=== PATIENT | male | born 1980 | race Caucasian/White ===

== ENCOUNTER 2023-09-01 06:07 | Day surgery (SDC) | payer OTHER, SELFPAY ==
[2023-09-01] VITALS (10 sets, daily range): BP systolic 108–132; BP diastolic 56–68
[2023-09-01] MEDS: NORMOSOL-R 1000 IV (06:39)
[2023-09-01] MEDS: TYLENOL 1000 MG PO (06:39)
[2023-09-01] MEDS: CELEBREX 200 MG PO (06:40)
[2023-09-01] MEDS: SUBLIMAZE 25 MCG IV (08:51)
== END 2023-09-01 10:20 | disposition home or self-care (01) ==
LOC: SDS 06:07
PROVIDERS: ATTENDING PHYSICIAN Specialist
DX: S46.011A Strain of muscle(s) and tendon(s) of the rotator cuff of right shoulder, initial encounter (principal); X58.XXXA Exposure to other specified factors, initial encounter; E66.01 Morbid (severe) obesity due to excess calories; Z68.42 Body mass index [BMI] 45.0-49.9, adult; Z98.890 Other specified postprocedural states
CPT/HCPCS: 29823

== ENCOUNTER 2024-01-22 01:42 | Emergency (ER) | payer SELFPAY ==
[2024-01-22 01:45] VITALS: BP 194/104
--- NOTE | 2024-01-22 02:25 | ED.GENMED ---
History of Present Illness
General
Chief Complaint: Dental Problem
Source: patient
Exam Limitations: none
Time Seen by Provider: 01/22/24 02:14
History of Present Illness
History of Present Illness:
See MDM
Past History
Past History
ED Past Medical History: CHF and HTN
ED Past Surgical History: None
Patient has exhibited threatening behavior?: No
PSI?: No
Social History
Tobacco: Former smoker
Alcohol: Occasional
Drug: None
Personal:
Living: with family
Employment: Employed
Family History
Family History: Hypertension
Phy Exam
Physical Exam
Physical Exam:
See MDM
Course
Orders/Labs/Results
Orders:
Orders
01/22/24 02:25
Amoxicillin 875 mg/Clav 125 mg [Augmentin 875 mg/125 mg] 1 tablet PO NOW STA
Ketorolac [Toradol] 30 mg IM NOW STA
Oxycodone/Acetaminophen [Percocet 5/325] 1 tablet PO NOW STA
Vital Signs
Initial and Last Documented VS:
Initial Vital Signs
Temp Pulse Resp BP Pulse Ox
98.1 F 63 16 194/104 99
01/22/24 01:45 01/22/24 01:45 01/22/24 01:45 01/22/24 01:45 01/22/24 01:45
Last Documented Vital Signs
Temp Pulse Resp BP Pulse Ox
98.1 F 63 16 194/104 99
01/22/24 01:45 01/22/24 01:45 01/22/24 01:45 01/22/24 01:45 01/22/24 01:45
MDM/Problems Addressed
Differential Diagnosis Includes:
HPI and MDM Narrative:
43-year-old male presenting for evaluation of right lower dental pain. He noted swelling over the past few days. Patient does acknowledge that he has poor dentition due to prior history of drug abuse. He no longer does drugs but he has not
followed up with a dentist. On exam, he has poor dentition and dental caries with multiple fractured teeth. He has got swelling to his left lower jaw with no palpable abscess. We discussed the likelihood of an apical abscess and the importance of
dental follow-up. He is nontoxic-appearing. Will start Augmentin. Patient is hesitant to start NSAIDs due to his history of high blood pressure.
Physical exam
General: Mildly uncomfortable
HEENT: protecting airway. Poor dentition. Swelling to the right lower jaw
Neck: appears supple
CV: No evidence of cyanosis
Resp: No accessory muscle use
Abd: Non-distended
Extremities: No deformities
Neuro: alert
Psych: Normal affect
Skin: Intact
Problems Addressed including Acute and Chronic Conditions affecting care:
1. Dental infection
Acuity: acute
Prognosis: stable
Details: We discussed the likelihood of apical abscess. Will start Augmentin and discussed the importance of dental follow-up
Differential Diagnosis (but not limited to): Dental caries, dental
Testing considered:
Drug therapy (if applicable): OTC meds, please see d/c instruction regarding Rx drugs
Amount and/or Complexity of Data Reviewed
Clinical info obtained from: Patient
External data reviewed: N/A
Labs I independently reviewed (but not limited to): N/A
Radiology: N/A
Pulse Ox: not hypoxic
EKG independently reviewed: N/A
Trimming Machine Operator: N/A
Critical Care: N/A
Risk of Complication:
Social Determinants of health: Good social support
Discussed with other providers: N/A
Escalation of Care includes Admit/Obs: After being observed in the Emergency Department, pt stable for discharge.
Occasional wrong word or 'sound a like' substitutions may have occurred due to the inherent limitations of voice recognition software. Read the chart carefully and recognize, using context, where substitutions have occurred.
*Critical Care Note
Total Time (30-74mins, 75-104mins- exclusive of procedures): Not Applicable
ED Attending Note
-
Portions of this chart may have been created with voice recognition software.� Occasional wrong word or��sound alike� substitutions may have occurred due to the inherent limitations of voice recognition software.
Discharge Plan
Departure
Patient Disposition: Home (Routine Discharge)
Date of Disposition: 01/22/24
Time of Disposition: 02:28
Patient with high blood pressure during this ER visit?: Yes
Discharge Problem:
Abscess, dental
Instructions: Tooth Abscess (DC), BLOOD PRESSURE
Prescriptions:
New
amoxicillin-pot clavulanate 875-125 mg tablet
1 tab PO BID Qty: 20 0RF
oxycodone 5 mg tablet
5 mg PO Q8H PRN (Reason: Pain) Qty: 14 0RF
No Action
carvedilol 12.5 mg tablet
12.5 mg PO BID
spironolactone 25 mg Tablet
25 mg PO DAILY Qty: 30 11RF
Entresto 49-51 mg Tablet
1 tab PO BID Qty: 60 11RF
furosemide [Lasix] 40 mg tablet
80 mg PO DAILY
Activity Restrictions/Additional Instructions:
Please return for any worsening symptoms.
You may return at any time if you have further concerns.
Please follow up with your doctor at the first available appointment, preferably this week.
You need to see the dentist at the first available appointment.
You were given a prescription for narcotics. If you require this pain medicine, please take a daily [id number] stool softener to avoid constipation.
Thank you for choosing [facility].
Interventions
Interventions:
*Risk Screen - Suicide Last Done: 01/22/24 01:45
*General Assessment Last Done: 01/22/24 01:45
*Neglect/Abuse Screening Last Done: 01/22/24 01:45
*ED COVID-19 Vaccine History Last Done: 01/22/24 02:10
Discharge Date and Time
Print Language: HEBREW
[2024-01-22] MEDS: AUGMENTIN 875 MG/125 MG 1 TABLET PO (02:29)
[2024-01-22] MEDS: TORADOL 30 MG IM (02:30)
[2024-01-22] MEDS: PERCOCET 5/325 1 TABLET PO (02:30)
[2024-01-22 02:35] VITALS: BP 131/74
== END 2024-01-22 02:45 | disposition home or self-care (01) ==
LOC: EMR 01:42
PROVIDERS: EMERGENCY PHYSICIAN Student in an Organized Health Care Education/Training Program
DX: K04.7 Periapical abscess without sinus (principal); I11.0 Hypertensive heart disease with heart failure; I50.9 Heart failure, unspecified; Z87.891 Personal history of nicotine dependence
CPT/HCPCS: 99284; 96372

== ENCOUNTER 2025-05-02 05:55 | Emergency (ER) | payer SELFPAY ==
[2025-05-02 06:20] VITALS: BP 135/79
[2025-05-02] MEDS: ANCEF 5 IV (07:48)
[2025-05-02 08:03] LABS: Hematocrit 39.9 % (39.0-52.0); Hemoglobin 13.1 g/dL (13.0-18.0); Mean Corp Hgb Conc. 32.8 g/dL (33.0-37.0); Mean Corpuscular Volume 86.0 fL (80.0-94.0); Nucleated Red Blood Cells % 0 % (-); Platelet Count 230 10^3/uL (130-400); Red Cell Dist. Width 13.7 % (11.5-14.5)
[2025-05-02 08:10] VITALS: BMI 46.5
[2025-05-02 08:19] LABS: ALT (SGPT) 27 U/L (0-50); AST (SGOT) 23 U/L (17-59); Albumin 4.3 g/dl (3.5-5.0); Alkaline Phosphatase 65 U/L (38-126); Blood Urea Nitrogen 28 mg/dl (9-20); Calcium 9.0 mg/dl (8.4-10.2); Carbon Dioxide 30 mmol/L (22-30); Chloride 99 mmol/L (98-107); Estimated Creatinine Clearance > 125 ml/min; Glucose 100 mg/dl (70-99); Potassium 4.4 mmol/L (3.5-5.1); Sodium 135 mmol/L (135-145); Total Protein 7.2 g/dl (6.3-8.2); eGFR > 60.00
--- NOTE | 2025-05-02 08:21 | ED.GENMED ---
History of Present Illness
<Mckenzie Marquez PA-C - Last Filed: 05/02/25 10:17>
General
Chief Complaint: Skin Problem
Source: patient
Exam Limitations: none
Time Seen by Provider: 05/02/25 07:06
Nursing documentation reviewed up to this point in time: agreed with
History of Present Illness
History of Present Illness:
see MDM
Past History
<VANNESA Randall Last Filed: 05/02/25 10:17>
Past History
ED Past Medical History: CHF and HTN
ED Past Surgical History: None
Patient has exhibited threatening behavior?: No
PSI?: No
Social History
Tobacco: Former smoker
Alcohol: Occasional
Drug: None
Personal:
Living: with family
Employment: Employed
Family History
Family History: Hypertension
Review of Systems
<VANNESA Randall Last Filed: 05/02/25 10:17>
Review of Systems
Allergies reviewed?: Yes
All Other Systems: Not applicable
Phy Exam
<Mckenzie Marquez PA-C - Last Filed: 05/02/25 10:17>
Physical Exam
Physical Exam:
GENERAL: Alert , in no apparent distress, comfortable at rest
HEAD: NCAT
CV: 2+ DP PULSES B/L
NEUROLOGICAL: Alert and oriented, no focal neuro deficits, , 5/5 strength, sensation intact, ambulation slight limp right leg
SKIN: Warm and dry, patient has a healing hematoma without obvious laceration or skin abrasion to the anterior proximal lower leg on the left but he has a large surrounding cellulitis that is mostly anterior and starting to wrap around the posterior
aspect of the calf. There is no crepitus, significant tenderness, mild tenderness is present though. Patient does have some mild pitting edema, his foot is normal perfusion, normal pulse, nontender, he is able to dorsi and plantarflex the foot
MUSCULOSKELETAL: healing Hematoma plus swelling to the anterior left lower extremity, full range of motion of the knee and the ankle
moderate swelling, and redness
PSYCH: Normal and appropriate interaction.
Sepsis
<Mckenzie Marquez PA-C - Last Filed: 05/02/25 10:17>
Sepsis Screening
Sepsis Assessment: Sepsis Ruled Out
Sepsis Screen
Sepsis Screen: Sepsis Ruled Out
Date: 05/02/25
Time: 10:17
Course
<Mckenzie Marquez PA-C - Last Filed: 05/02/25 10:17>
Orders/Labs/Results
Orders:
Orders
05/02/25 07:21
Tib/Fib, Left 2 View [CR Leg Tibia/fibula Left 2 Vw] Urgent
Comment:
Reason For Exam: hematoma to L day, now cellulitis
05/02/25 07:26
CeFAZolin 1 GRAM [Ancef] 1 gram in 5 ml IV NOW
05/02/25 07:47
Complete Blood Count/With Diff Urgent
Comprehensive Metabolic Panel Urgent
Abnormal Lab Results
05/02/25
07:47
RBC 4.64 L 10^6/uL
(4.70-6.10)
MCHC 32.8 L g/dL
(33.0-37.0)
MPV 11.1 H fL
(7.4-10.4)
Abs Immat Gran (auto) 0.1 H 10^3/uL
(0-0.05)
Absolute Monos (auto) 1.0 H 10^3/uL
(0.1-0.6)
Immature Gran % 0.7 H %
(0-0.5)
Monocytes % 12.1 H %
(1.7-9.3)
BUN 28 H mg/dl
(9-20)
Glucose 100 H mg/dl
(70-99)
05/02/25 07:47
05/02/25 07:47
Vital Signs
Initial and Last Documented VS:
Initial Vital Signs
Temp Pulse Resp BP Pulse Ox
37.1 C 80 18 135/79 97
05/02/25 06:20 05/02/25 06:20 05/02/25 06:20 05/02/25 06:20 05/02/25 06:20
Last Documented Vital Signs
Temp Pulse Resp BP Pulse Ox
37.1 C 65 18 111/61 97
05/02/25 06:20 05/02/25 08:41 05/02/25 06:20 05/02/25 08:41 05/02/25 08:41
<Farzaneh Salazar MD - Last Filed: 05/02/25 08:25>
Orders/Labs/Results
Orders:
Orders
05/02/25 07:21
Tib/Fib, Left 2 View [CR Leg Tibia/fibula Left 2 Vw] Urgent
Comment:
Reason For Exam: hematoma to L day, now cellulitis
05/02/25 07:26
CeFAZolin 1 GRAM [Ancef] 1 gram in 5 ml IV NOW
05/02/25 07:47
Complete Blood Count/With Diff Urgent
Comprehensive Metabolic Panel Urgent
Abnormal Lab Results
05/02/25
07:47
RBC 4.64 L 10^6/uL
(4.70-6.10)
MCHC 32.8 L g/dL
(33.0-37.0)
MPV 11.1 H fL
(7.4-10.4)
Abs Immat Gran (auto) 0.1 H 10^3/uL
(0-0.05)
Absolute Monos (auto) 1.0 H 10^3/uL
(0.1-0.6)
Immature Gran % 0.7 H %
(0-0.5)
Monocytes % 12.1 H %
(1.7-9.3)
BUN 28 H mg/dl
(9-20)
Glucose 100 H mg/dl
(70-99)
05/02/25 07:47
05/02/25 07:47
Vital Signs
Initial and Last Documented VS:
Initial Vital Signs
Temp Pulse Resp BP Pulse Ox
37.1 C 80 18 135/79 97
05/02/25 06:20 05/02/25 06:20 05/02/25 06:20 05/02/25 06:20 05/02/25 06:20
Last Documented Vital Signs
Temp Pulse Resp BP Pulse Ox
37.1 C 65 18 111/61 97
05/02/25 06:20 05/02/25 08:41 05/02/25 06:20 05/02/25 08:41 05/02/25 08:41
<Mckenzie Marquez PA-C - Last Filed: 05/02/25 10:17>
MDM/Problems Addressed
Differential Diagnosis Includes:
see MDM
MDM/Problems Addressed:
Note:
CHIEF COMPLAINT(S)
Leg redness and swelling following trauma.
HISTORY OF PRESENT ILLNESS
The patient is a 44-year-old male who presented with concerns of leg redness and swelling. The patient reported falling and hitting his chin on a curb last Monday, resulting in a large contusion and hematoma on the leg. Initially, the area was a
prominent bruise without any open wound or bleeding. By the following Monday or Monday, the patient began to notice increased redness and swelling at the site, which was initially about the size of a tennis ball. The patient described the pain as
progressively worsening over the last two days, with the pain being particularly excruciating during initial steps after rest, especially upon waking at night. No fever or chills have been reported by the patient. There is also a notable white,
chalky appearance on the skin, described as dry and stretched out. The patient denies having diabetes and has had no prior issues with poorly healing wounds or cellulitis in this area.
he has had MRSA cellulitis hand previously
PAST MEDICAL AND SURGICAL HISTORY
The patient mentioned taking several medications for blood pressure, but specific past medical or surgical details were not discussed.
MEDICATIONS
The patient reports taking Spironolactone, Furosemide, Lisinopril, and Carvedilol for blood pressure management.
PLAN
The plan includes drawing a boundary line around the area of redness for monitoring, ordering basic laboratory tests, and administering a dose of intravenous antibiotics before discharge. The patient is to be sent home with a prescription for oral
antibiotics. The patient was advised to return if the redness expands beyond the marked area or if fever develops, as this could necessitate further intravenous antibiotic therapy.
DIFFERENTIAL DIAGNOSIS
The Differential Diagnosis includes, in no particular order and is not limited to:
1. Cellulitis
2. Contusion with superimposed infection
3. Deep vein thrombosis
4. Hematoma-related infection
5. Gout flare
6. Vascular insufficiency
7. Lymphedema
8. Erysipelas
9. Contact dermatitis
10. Venous stasis dermatitis
CARE-UPDATE
05/02/25 - 09:11
Patients blood work results are reassuring, showing normal sugar levels and a normal white blood cell count. Redness on the affected area will be monitored by drawing a boundary line around it. A dose of IV antibiotics targeting staph and strep
infections has been administered, and doxycycline has been prescribed, based on previous effectiveness against similar infections. The patient was advised to monitor the redness over the next 48 hours and return if it extends significantly beyond
the marked boundary, particularly by Monday. The possibility of blood clots is considered low; however, further action and an ultrasound may be necessary if symptoms worsen or capillary bleeding increases.
<Mckenzie Marquez PA-C - Last Filed: 05/02/25 10:17>
*Pulse Oximetry
SaO2: 97
Oxygen Mode of Delivery: Room air
Patient hypoxic: no (97)
*Critical Care Note
Total Time (30-74mins, 75-104mins- exclusive of procedures): Not Applicable
ED Attending Note
<Mckenzie Marquez PA-C - Last Filed: 05/02/25 10:17>
-
Portions of this chart may have been created with voice recognition software.� Occasional wrong word or��sound alike� substitutions may have occurred due to the inherent limitations of voice recognition software.
<Farzaneh Salazar MD - Last Filed: 05/02/25 08:25>
ED Attending Note
Patient seen and examined by attending physician: Yes
I performed the substantive portion of visit, reviewed & personally made and approve the management plan that is documented in note by myself or MAURICE.: Yes
ED Attending Note:
44 yr old male who suffered a fall, strking L tib/fib. Initially, pt noted hematoma, now in last few days, area swollen/painful/red. No f/c/drainage/n/t/focal weakness. No cp/sob. Able to ambulate. On exam, L day area with erythema/warmth extend
faintly to post aspc/calf. Nl pulses/cap refill. FROM. Hematoma (small) noted anteriorly. No fluctuance/crepitus/drainage or other abnl. H x/phy very suggestive of cellulitis secondary to minor trauma. Highly doubt DVT or other abnl. Pt will
closely follow with daily photos and close f/u, aware re:reasons to rted.
Discharge Plan
Departure
Patient Disposition: Home (Routine Discharge)
Date of Disposition: 05/02/25
Time of Disposition: 09:09
Patient with high blood pressure during this ER visit?: No
Condition: Fair
Covid-19: Not Applicable
Discharge Problem:
Cellulitis
Instructions: Cellulitis (Skin Infection), Adult (DC)
Prescriptions:
New
doxycycline hyclate 100 mg tablet
100 mg PO BID Qty: 14 0RF
No Action
carvedilol 12.5 mg tablet
12.5 mg PO BID
spironolactone 25 mg Tablet
25 mg PO DAILY Qty: 30 11RF
Entresto 49-51 mg Tablet
1 tab PO BID Qty: 60 11RF
furosemide [Lasix] 40 mg tablet
80 mg PO DAILY
amoxicillin-pot clavulanate 875-125 mg tablet
1 tab PO BID Qty: 20 0RF
oxycodone 5 mg tablet
5 mg PO Q8H PRN (Reason: Pain) Qty: 14 0RF
Referrals:
Heidi Andersen CRNP [Family Provider, Internal Medicine]
Activity Restrictions/Additional Instructions:
you have a cellulitis which is a skin infection around your hematoma of your lower leg. You need to elevate this to help with pain and swelling, you should watch this very closely, I arlen a line around the redness. You should take the antibiotics
as prescribed but if you are having extension of the redness outside the line within the next 24 to 48 hours you should return. Any fevers or chills or worsening severe pain, foot drop, numbness tingling or weakness you need to return immediately.
It is very low suspicion for a blood clot but if you are having continued redness and swelling in of the calf I would recommend that you have an ultrasound as an outpatient. Your x-ray here showed no signs of fracture.
Interventions
Interventions:
*General Assessment Last Done: 05/02/25 07:48
*Neglect/Abuse Screening Last Done: 05/02/25 09:20
*ED COVID-19 Vaccine History Last Done: 05/02/25 08:12
*ED Influenza Vaccine History Last Done: 05/02/25 08:12
[facility] Risk Assessment Tool Last Done: 05/02/25 08:11
*Risk Screen - Suicide (C-SSRS) Last Done: 05/02/25 06:20
*Nursing Disposition Last Done: 05/02/25 09:20
ED-Skin Assessment Last Done: 05/02/25 08:12
Discharge Date and Time
Discharge Date/Time: 05/02/25 09:16
Print Language: OCCITAN
[2025-05-02 08:39] VITALS: BP 111/61
[2025-05-02 08:41] VITALS: BP 111/61
== END 2025-05-02 09:16 | disposition home or self-care (01) ==
LOC: EMR 05:55
PROVIDERS: Physician Assistant; EMERGENCY PHYSICIAN Emergency Medicine; FAMILY PHYSICIAN Nurse Practitioner Adult Health
DX: L03.116 Cellulitis of left lower limb (principal); I11.0 Hypertensive heart disease with heart failure; I50.9 Heart failure, unspecified; Z87.891 Personal history of nicotine dependence; Z86.14 Personal history of Methicillin resistant Staphylococcus aureus infection; Z82.49 Family history of ischemic heart disease and other diseases of the circulatory system
CPT/HCPCS: 99284; 96374; 73590; 80053; 85025

== ENCOUNTER 2025-05-05 07:18 | Emergency (ER) | payer SELFPAY ==
[2025-05-05 07:30] VITALS: BP 143/73
--- NOTE | 2025-05-05 08:13 | ED.GENMED ---
History of Present Illness
General
Chief Complaint: Skin Problem
Source: patient
Exam Limitations: none
Time Seen by Provider: 05/05/25 08:05
Nursing documentation reviewed up to this point in time: agreed with
History of Present Illness
History of Present Illness:
Patient seen in ED 3 days ago, diagnosed with lower leg cellulitis and started on doxycycline, presents to ED secondary to worsening redness with pain despite taking antibiotics. Patient reports subjective chills sensation without fever. Denies
new trauma. Denies nausea or vomiting. Denies headache. Denies rash. Denies calf pain. Denies increased swelling. There was skin marker drawn 3 days ago when he was discharged. Patient states that although redness has not extended proximally,
but feels as though redness is extending laterally. Patient has history of MRSA infection on his hand over 10 years ago. Patient is found to be afebrile upon arrival in ED, and states that he has not taken Tylenol/Motrin prior to arrival. Of
note, initial incident occurred 10 days ago, when he lost balance and fell onto the curb, hitting his left lower leg, which developed immediate bruising with swelling.
Past History
Past History
ED Past Medical History: CHF and HTN
ED Past Surgical History: None
Patient has exhibited threatening behavior?: No
PSI?: No
Social History
Tobacco: Former smoker
Alcohol: Occasional
Drug: None
Personal:
Living: with family
Employment: Employed
Family History
Family History: Hypertension
Review of Systems
Review of Systems
Allergies reviewed?: Yes
All Other Systems: ROS reviewed and negative except as documented in HPI and ROS
Constitutional: Reports chills; Denies fever
ABD/GI: Reports no symptoms
Musculoskeletal: Reports other (Leg redness with pain)
Skin: Reports no symptoms
Neurological: Reports no symptoms
Phy Exam
Physical Exam
Physical Exam:
Physical Exam
General: no apparent distress, not acutely ill. afebrile
Head: nc/at. eomi
Neck: supple. normal range of motion
Abdomen: normal bowel sounds. not tender.
Neuro: alert and oriented x 3. no focal neurological deficits
Skin: LLE: an area of 1cm diameter contusion/hematoma noted over anterior tibia, without open drainage. surrounding erythema noted, extending laterally, without calf involvement/pain. An area of erythema below,
already drawn horizontal skin line.
Psychiatric: well kept. interactive and cooperative
Extremities: no edema. no calf tenderness.
Course
Orders/Labs/Results
Orders:
Orders
05/05/25 08:22
Basic Metabolic Panel Urgent
Complete Blood Count/With Diff Urgent
Blood Culture Q30M
[place] Source: Blood/Venous
Specimen Description:
Blood Culture Q30M
[place] Source: Blood/Venous
Specimen Description:
Abnormal Lab Results
05/05/25
08:22
RBC 4.65 L 10^6/uL
(4.70-6.10)
MPV 10.5 H fL
(7.4-10.4)
Abs Immat Gran (auto) 0.2 H 10^3/uL
(0-0.05)
Absolute Monos (auto) 1.0 H 10^3/uL
(0.1-0.6)
Immature Gran % 1.8 H %
(0-0.5)
Monocytes % 10.6 H %
(1.7-9.3)
BUN 25 H mg/dl
(9-20)
05/05/25 08:22
05/05/25 08:22
Vital Signs
Initial and Last Documented VS:
Initial Vital Signs
Temp Pulse Resp BP Pulse Ox
98.4 F 74 18 143/73 97
05/05/25 07:30 05/05/25 07:30 05/05/25 07:30 05/05/25 07:30 05/05/25 07:30
Last Documented Vital Signs
Temp Pulse Resp BP Pulse Ox
98.4 F 78 16 138/79 97
05/05/25 07:30 05/05/25 08:42 05/05/25 08:42 05/05/25 08:42 05/05/25 08:42
MDM/Problems Addressed
MDM/Problems Addressed:
Blood work reviewed. Patient otherwise is afebrile, hemodynamically stable, and without acute distress, at time of discharge. Patient with likely ongoing cellulitis, which does not reveal any evidence of worsening presentation at this time. As
such, I believe it is reasonable to continue Doxycyclin as already prescribed, along with expected follow-up with PCP. Patient expresses understanding at time of discharge.
Blood culture pending
*Pulse Oximetry
SaO2: 97
Oxygen Mode of Delivery: Room air
Patient hypoxic: no
*Critical Care Note
Total Time (30-74mins, 75-104mins- exclusive of procedures): Not Applicable
ED Attending Note
-
Portions of this chart may have been created with voice recognition software.� Occasional wrong word or��sound alike� substitutions may have occurred due to the inherent limitations of voice recognition software.
Discharge Plan
Departure
Patient Disposition: Home (Routine Discharge)
Date of Disposition: 05/05/25
Time of Disposition: 08:35
Patient with high blood pressure during this ER visit?: Yes
Condition: Good
Discharge Problem:
Cellulitis of left leg
Instructions: Cellulitis (Skin Infection), Adult (DC)
Prescriptions:
No Action
carvedilol 12.5 mg tablet
12.5 mg PO BID
spironolactone 25 mg Tablet
25 mg PO DAILY Qty: 30 11RF
Entresto 49-51 mg Tablet
1 tab PO BID Qty: 60 11RF
furosemide [Lasix] 40 mg tablet
80 mg PO DAILY
amoxicillin-pot clavulanate 875-125 mg tablet
1 tab PO BID Qty: 20 0RF
oxycodone 5 mg tablet
5 mg PO Q8H PRN (Reason: Pain) Qty: 14 0RF
doxycycline hyclate 100 mg tablet
100 mg PO BID Qty: 14 0RF
Referrals:
Heidi Andresen CRNP [Family Provider, Internal Medicine]
Activity Restrictions/Additional Instructions:
As discussed, please follow-up with your primary care physician for reevaluation. Until then, recommend continuing already prescribed antibiotics. Please consider return to ED with worsening symptoms
Interventions
Interventions:
*General Assessment Last Done: 05/05/25 08:31
*Neglect/Abuse Screening Last Done: 05/05/25 07:34
[facility] Risk Assessment Tool Last Done: 05/05/25 08:31
*Risk Screen - Suicide (C-SSRS) Last Done: 05/05/25 07:34
*Nursing Disposition Last Done: 05/05/25 08:42
ED-Skin Assessment Last Done: 05/05/25 08:31
Discharge Date and Time
Discharge Date/Time: 05/05/25 08:46
Print Language: PORTUGUESE
[2025-05-05 08:34] LABS: Hematocrit 39.5 % (39.0-52.0); Hemoglobin 13.2 g/dL (13.0-18.0); Mean Corp Hgb Conc. 33.4 g/dL (33.0-37.0); Mean Corpuscular Volume 84.9 fL (80.0-94.0); Nucleated Red Blood Cells % 0 % (-); Platelet Count 238 10^3/uL (130-400); Red Cell Dist. Width 13.8 % (11.5-14.5)
[2025-05-05 08:42] VITALS: BP 138/79
[2025-05-05 08:55] LABS: Blood Urea Nitrogen 25 mg/dl (9-20); Calcium 9.0 mg/dl (8.4-10.2); Carbon Dioxide 28 mmol/L (22-30); Chloride 102 mmol/L (98-107); Glucose 99 mg/dl (70-99); Potassium 4.7 mmol/L (3.5-5.1); Sodium 136 mmol/L (135-145); eGFR > 60.00
== END 2025-05-05 08:46 | disposition home or self-care (01) ==
LOC: EMR 07:18
PROVIDERS: EMERGENCY PHYSICIAN Emergency Medicine; FAMILY PHYSICIAN Nurse Practitioner Adult Health
DX: L03.116 Cellulitis of left lower limb (principal); I11.0 Hypertensive heart disease with heart failure; I50.9 Heart failure, unspecified
CPT/HCPCS: 99283; 80048; 85025; 87040